=== PATIENT | male | born 1940 | race Caucasian/White ===

== ENCOUNTER 2019-12-07 19:06 | Emergency (ER) | payer OTHER, MEDICAID ==
[~2019-12-07] VITALS: Ht 175.3 cm; Wt 112.0 kg
--- NOTE | 2019-12-07 19:20 | NUR ---
PT SOFIA C/O ABDOMINAL PAIN X1 WEEK, ALSO C/O SOB WHILE WALKING. PER SON, STATES HE HAD ABDOMINAL CT LAST WEEK WITH RESULTS OF FLUID IN L LUNG AND STOMACH. NOTED DISTENDED ABDOMEN. PT AAOX4. AMBULATORY WITH STEADY GAIT. VITAL SIGNS STABLE. RESPIRATIONS EVEN AND UNLABORED. SKIN INTACT. NO ACUTE DISTRESS NOTED AT THIS TIME. WILL CONTINUE TO MONITOR
--- NOTE | 2019-12-07 19:20 | NUR ---
MARSHA (SON) CONTACT INFORMATION: [phone] / [phone] ZANDRA CONTACT INFORMATION: [phone] DR. LUGO (PT'S MD SPINNING ROOM WORKER): [phone]
--- NOTE | 2019-12-07 19:31 | NUR ---
IV INITIATED LAC 18G. LABS DRAWN FROM SITE. BOILER TUBE REAMER AT BEDSIDE FOR COLLECTION. IV INTACT AND PATENT, PLACED ON SALINE LOCK
--- NOTE | 2019-12-07 19:32 | NUR ---
RADIOLOGY AT BEDSIDE FOR CXR
--- NOTE | 2019-12-07 19:34 | NUR ---
[facility] RADIOLOGY [facility]
[2019-12-07 19:36] LABS: BASOPHILS # (AUTO) 0.1 /CMM (0.0-0.2); BASOPHILS % (AUTO) 1.2 % (0.0-2.0); EOSINOPHILS % (AUTO) 0.8 % (0.0-6.0); HEMATOCRIT 49 % (39-51); HEMOGLOBIN 16.1 g/dL (13.5-17.5); LYMPHOCYTES % (AUTO) 21.1 % (20.0-44.0); MEAN CORPUSCULAR HGB CONC 33 g/dl (31.0-36.0); MEAN CORPUSCULAR VOLUME 101 fL (80-96); MONOCYTES # (AUTO) 0.6 /CMM (0.1-1.30); MONOCYTES % (AUTO) 13.4 % (2.0-12.0); NEUTROPHILS # (AUTO) 2.9 /CMM (1.8-8.9); NEUTROPHILS % (AUTO) 63.5 % (43.0-81.0); PLATELET COUNT (AUTO) 187 /CMM (150-450); RED BLOOD CELL COUNT(AUTO) 4.88 MIL/uL (4.5-6.0); WHITE BLOOD COUNT (AUTO) 4.6 K/uL (4.3-11.0)
--- NOTE | 2019-12-07 19:43 | NUR ---
PT RETURNED FROM CT
--- NOTE | 2019-12-07 20:00 | NUR ---
PT UNABLE TO PROVIDE URINE SAMPLE AT THIS TIME. MD LOPEZ
[2019-12-07 20:01] LABS: CARBON DIOXIDE 27 mmol/L (21-32); CHLORIDE 105 mmol/L (98-107); GLUCOSE 114 mg/dL (74-106); POTASSIUM 4.5 mmol/L (3.5-5.1); SODIUM SERUM 141 mmol/L (136-145); UREA NITROGEN, BLOOD 12 mg/dL (7-18)
[2019-12-07 20:07] LABS: ALANINE AMINOTRANSFERASE 38 U/L (12-78); ALBUMIN 2.6 g/dL (3.4-5.0); ALKALINE PHOSPHATASE 271 U/L (46-116); ASPARTATE AMINOTRANSFERASE 52 U/L (15-37); BILIRUBIN,DIRECT 1.6 mg/dL (0.0-0.2); LIPASE 106 U/L (73-393); TOTAL PROTEIN, SERUM 7.3 g/dL (6.4-8.2)
--- NOTE | 2019-12-07 20:17 | NUR ---
CONSENT FORM SIGNED BY PATIENT AND PLACED IN CHART. DR. CUNHA AT BEDSIDE FOR PARACENTESIS
[2019-12-07] MEDS ORDERED: CEFTRIAXONE 1GM BAG (ER ONLY) 50 ML IV ONE ×2 (21:00→21:06)
--- NOTE | 2019-12-07 21:17 | NUR ---
COVID SWAB COLLECTED, CALLED LAB FOR LATENT PRINT EXAMINER
--- NOTE | 2019-12-07 21:23 | NUR ---
Karen chavira in ED - 12/07/19 at 2131 by KAREN 10L BODILY FLUID REMOVED VIA PARACENTESIS. CATH REMOVED, PRESSURE DRESSING APPLIED TO RLQ. PT RESTING COMFORTABLY IN BED.
--- NOTE | 2019-12-07 21:23 | NUR ---
TOTAL OF 10L PERITONEAL FLUID REMOVED VIA PARACENTESIS OVER 1 HOUR. CATH REMOVED, PRESSURE DRESSING APPLIED TO RLQ. PT RESTING COMFORTABLY IN BED. WILL CONTINUE TO MONITOR
--- NOTE | 2019-12-08 01:29 | NUR ---
TRANSFER INFORMATION: PT WILL BE TRANSFERRED TO [facility] PER INSURANCE REQUEST ACCEPTING MD: DR. ODEN NUMBER FOR REPORT: [phone] BED ASSIGNMENT [id number] NURSE FOR REPORT: [facility] ETA [id number]
--- NOTE | 2019-12-08 01:46 | NUR ---
REPORT GIVEN TO [facility]ERDA EASTMAN FOR [facility]
[2019-12-08 02:29] VITALS: BP 159/135
--- NOTE | 2019-12-08 02:29 | NUR ---
REPORT GIVEN TO [facility] FOR TRANSPORTATION [facility]. PT TRANSFERRED TO [facility] IN STABLE CONDITION
--- NOTE | 2019-12-08 21:16 | NUR ---
LAB CALLED REGARDING GRAM (+) COCCI.
== END 2019-12-08 02:30 | disposition short-term general hospital (02) ==
LOC: ER 19:12
DX: C18.9 Malignant neoplasm of colon, unspecified (principal); C78.7 Secondary malignant neoplasm of liver and intrahepatic bile duct; I48.91 Unspecified atrial fibrillation; R18.0 Malignant ascites; K21.9 Gastro-esophageal reflux disease without esophagitis; I10 Essential (primary) hypertension; R00.0 Tachycardia, unspecified; K80.20 Calculus of gallbladder without cholecystitis without obstruction; R06.02 Shortness of breath; J90 Pleural effusion, not elsewhere classified; Z20.828 Contact with and (suspected) exposure to other viral communicable diseases
CPT/HCPCS: 36415; 49083; 71045; 74176; 80048; 80076; 83605; 83690; 84484; 85025; 85730; 87040 ×2; 87070; 87081; 87426; 89051; 93005 ×2; 96365; 99285; C9803; J0696